=== PATIENT | male | born 1955 | race Hispanic/Latino ===

== ENCOUNTER 2017-11-30 18:04 | Emergency (ER) | payer OTHER ==
[~2017-11-30] VITALS: Ht 167.6 cm; Wt 76.2 kg
[2017-11-30] MEDS ORDERED: ULTRAM50 MG PO (19:28)
[2017-11-30] MEDS ORDERED: VALIUM5 MG PO (19:28)
[2017-11-30] MEDS ORDERED: LIDODERM 5% P1 PATCH TD (19:28)
[2017-11-30 19:35] VITALS: BP 126/76
== END 2017-11-30 19:47 | disposition home or self-care (01) ==
LOC: EME 18:04
DX: S39.012A Strain of muscle, fascia and tendon of lower back, initial encounter (principal); G89.29 Other chronic pain; M51.36 Other intervertebral disc degeneration, lumbar region
CPT/HCPCS: 72100; 99281; 99283; J1885